=== PATIENT | female | born 1970 | race Caucasian/White ===

== ENCOUNTER 2023-11-29 03:58 | Emergency (ER) | payer BC ==
[~2023-11-29] VITALS: Ht 144.8 cm; Wt 70.8 kg
[2023-11-29 04:10] VITALS: PULSE 73; RESP 18; TEMP 97.5
[2023-11-29] MEDS ORDERED: LACTATED RINGER'S 1,000 ML ONE (04:46)
[2023-11-29] MEDS: LIDOCAINE VISC 2% SOLN 15 ML UDC PO ONE (04:48)
[2023-11-29] MEDS: ONDANSETRON HCL INJ 2MG/ML 2ML 2 MG/ML VIAL IV ONE (04:49)
[2023-11-29] MEDS: LACTATED RINGER'S 1,000 ML INJ ONE (04:49)
[2023-11-29] MEDS: KETOROLAC TROMETHAMINE 30 MG/ML VIAL IV STA (04:58)
[2023-11-29] MEDS: MAGNESIUM/ALUMINUM/SIMETHICONE 30 ML UDC PO ONE (04:58)
[2023-11-29] MEDS: FAMOTIDINE 20 MG/2 ML VIAL IV ONE (04:59)
[2023-11-29] MEDS: BELLADONNA ALK/PHENOBARBITAL 5 ML UDC PO ONE (04:59)
[2023-11-29] MEDS ORDERED: ONDANSETRON ODT4 MG PO (05:25)
[2023-11-29] MEDS ORDERED: OMEPRAZOLE40 MG PO (05:25)
[2023-11-29] MEDS ORDERED: MAALOX MAXIMUM355 ML PO (05:25)
[2023-11-29 06:07] VITALS: BP 121/84; PULSE 74; RESP 18; TEMP 98.1; O2SAT 99
== END 2023-11-29 06:11 | disposition home or self-care (01) ==
LOC: FSED 04:05
DX: R11.2 Nausea with vomiting, unspecified (principal); K29.70 Gastritis, unspecified, without bleeding; R10.13 Epigastric pain; R42 Dizziness and giddiness; R51.9 Headache, unspecified
CPT/HCPCS: 80048; 80076; 81003; 81025; 85025; 99284; J1885; J2405; J7121